=== PATIENT | male | born 1965 | race African-American/Black ===

== ENCOUNTER 2021-02-05 07:56 | Outpatient (CLI) | payer OTHER, SELFPAY ==
[2021-02-05 08:26] LABS: Alanine Aminotransferase 18 U/L (4-50); Albumin Level 4.5 g/dL (3.5-5.1); Alkaline Phosphatase 80 U/L (38-126); Anion Gap 7 mmol/L (8-16); Aspartate Amino Transferase 33 U/L (17-59); Bilirubin,Total 0.7 mg/dL (0.2-1.3); Blood Urea Nitrogen 15 mg/dL (9-20); Calcium 9.3 mg/dL (8.4-10.2); Carbon Dioxide 28 mmol/L (22-30); Chloride 102 mmol/L (98-107); Cholesterol 153 mg/dL (0-200); Estimated Glomerular Filt Rate > 60; Glucose 96 mg/dL (65-110); HDL Direct 40 mg/dL; Potassium 4.2 mmol/L (3.4-5.0); Sodium 137 mmol/L (137-145); Triglycerides 57 mg/dL (<150)
[2021-02-05 08:36] LABS: LDL Cholesterol Direct 79 mg/dL
[2021-02-05 08:55] LABS: Prostate Specific Antigen 1.3 ng/mL (< OR = 4.0)
== END 2021-02-05 07:57 | disposition home or self-care (01) ==
PROVIDERS: PCP Internal Medicine; Visit Provider Nurse Practitioner
DX: R73.03 Prediabetes (principal); I10 Essential (primary) hypertension; Z12.5 Encounter for screening for malignant neoplasm of prostate; E03.9 Hypothyroidism, unspecified; Z79.899 Other long term (current) drug therapy; E78.5 Hyperlipidemia, unspecified
CPT/HCPCS: 36415; 80053; 80061; 83036; 84153; 84443; G0103

== ENCOUNTER 2022-03-10 10:00 | Outpatient (CLI) | payer BC, SELFPAY ==
[2022-03-10 11:03] LABS: Alanine Aminotransferase 18 U/L (6-50); Albumin Level 4.2 g/dL (3.5-5.1); Alkaline Phosphatase 70 U/L (38-126); Anion Gap 7 mmol/L (8-16); Aspartate Amino Transferase 23 U/L (17-59); Bilirubin,Total 0.6 mg/dL (0.2-1.3); Blood Urea Nitrogen 15 mg/dL (9-20); Calcium 9.2 mg/dL (8.4-10.2); Carbon Dioxide 29 mmol/L (22-30); Chloride 100 mmol/L (98-107); Cholesterol 151 mg/dL (0-200); Estimated Glomerular Filt Rate > 60; Glucose 95 mg/dL (65-110); HDL Direct 49 mg/dL; Sodium 136 mmol/L (137-145); Triglycerides 47 mg/dL (<150)
[2022-03-10 11:15] LABS: LDL Cholesterol Direct 74 mg/dL
[2022-03-10 11:36] LABS: Prostate Specific Antigen 1.6 ng/mL (< OR = 4.0)
[2022-03-10 11:39] LABS: Hemoglobin A1C 5.8 % (<5.7)
== END 2022-03-10 10:01 | disposition home or self-care (01) ==
PROVIDERS: PCP Internal Medicine; Visit Provider Internal Medicine
DX: E03.9 Hypothyroidism, unspecified (principal); I10 Essential (primary) hypertension; Z79.899 Other long term (current) drug therapy; E78.5 Hyperlipidemia, unspecified; R73.03 Prediabetes; Z12.5 Encounter for screening for malignant neoplasm of prostate
CPT/HCPCS: 36415; 80053; 80061; 83036; 84153; 84443; G0103

== ENCOUNTER 2022-03-22 14:41 | Outpatient (CLI) | payer BC, SELFPAY ==
--- NOTE | ~2022-03-22 | XR_ITS ---
EXAM: XR knee LT 3V DATE: 03/22/2022 15:04 HISTORY: M25.569 - LT KNEE PAIN . COMPARISON: 09/28/2008. FINDINGS: Decreased mineralization. No acute fracture or dislocation. No lytic or blastic lesion. Mo derate medial and mild lateral joint space narrowing. Tricompartmental osteophytosis, severe tibial f emoral compartment. No erosion or periosteal change. Vascular calcification. Large volume joint fluid . IMPRESSION: Left knee osteoarthritis, severe in the patellofemoral compartment. Large left knee joint effusion. Reviewed, dictated and finalized at location [facility].
== END 2022-03-22 14:42 | disposition home or self-care (01) ==
LOC: ANHIMG 14:47
PROVIDERS: PCP Internal Medicine; Visit Provider Internal Medicine
DX: M17.12 Unilateral primary osteoarthritis, left knee (principal); M25.462 Effusion, left knee
CPT/HCPCS: 73562

== ENCOUNTER 2023-04-03 08:04 | Outpatient (CLI) | payer BC, SELFPAY ==
[2023-04-03 08:43] LABS: Alanine Aminotransferase 23 U/L (6-50); Albumin Level 4.2 g/dL (3.5-5.1); Alkaline Phosphatase 62 U/L (38-126); Anion Gap 5 mmol/L (8-16); Aspartate Amino Transferase 28 U/L (17-59); Bilirubin,Total 0.6 mg/dL (0.2-1.3); Blood Urea Nitrogen 15 mg/dL (9-20); Calcium 8.9 mg/dL (8.4-10.2); Carbon Dioxide 28 mmol/L (22-30); Chloride 105 mmol/L (98-107); Cholesterol 136 mg/dL (0-200); Estimated Glomerular Filt Rate > 60; Glucose 90 mg/dL (65-110); HDL Direct 36 mg/dL; Potassium 4.4 mmol/L (3.4-5.0); Sodium 138 mmol/L (137-145); Triglycerides 53 mg/dL (<150)
[2023-04-03 08:48] LABS: Hemoglobin A1C 5.7 % (<5.7)
[2023-04-03 08:54] LABS: LDL Cholesterol Direct 78 mg/dL
== END 2023-04-03 08:05 | disposition home or self-care (01) ==
LOC: ANHLAB 08:06
PROVIDERS: PCP Nurse Practitioner; Visit Provider Nurse Practitioner
DX: I10 Essential (primary) hypertension (principal); Z79.899 Other long term (current) drug therapy; R73.03 Prediabetes; E78.5 Hyperlipidemia, unspecified
CPT/HCPCS: 36415; 80053; 80061; 83036

== ENCOUNTER 2024-04-01 12:03 | Outpatient (CLI) | payer BC, SELFPAY ==
[2024-04-01 13:25] LABS: Alanine Aminotransferase 16 U/L (6-50); Albumin Level 4.3 g/dL (3.5-5.1); Alkaline Phosphatase 69 U/L (38-126); Anion Gap 7 mmol/L (4-12); Aspartate Amino Transferase 25 U/L (17-59); Bilirubin,Total 0.6 mg/dL (0.2-1.3); Blood Urea Nitrogen 12 mg/dL (9-20); Calcium 8.9 mg/dL (8.4-10.2); Carbon Dioxide 30 mmol/L (22-30); Chloride 99 mmol/L (98-107); Cholesterol 148 mg/dL (0-200); Estimated Glomerular Filt Rate > 60; Glucose 101 mg/dL (65-110); HDL Direct 47 mg/dL; Potassium 3.7 mmol/L (3.4-5.0); Sodium 136 mmol/L (137-145); Triglycerides 90 mg/dL (<150)
[2024-04-01 13:39] LABS: Hemoglobin A1C 6.3 % (<5.7); LDL Cholesterol Direct 79 mg/dL
[2024-04-01 13:57] LABS: Prostate Specific Antigen 3.3 ng/mL (< OR = 4.0)
== END 2024-04-01 12:04 | disposition home or self-care (01) ==
LOC: ANHLAB 12:04
PROVIDERS: PCP Nurse Practitioner; Visit Provider Nurse Practitioner
DX: E78.5 Hyperlipidemia, unspecified (principal); E03.9 Hypothyroidism, unspecified; R73.03 Prediabetes; Z12.5 Encounter for screening for malignant neoplasm of prostate
CPT/HCPCS: 36415; 80053; 80061; 83036; 84153; 84443; G0103

== ENCOUNTER 2024-05-12 03:19 | Day surgery (SDC) | payer BC, SELFPAY ==
[2024-05-02 13:48] VITALS: BMI 32.3
--- NOTE | 2024-05-11 15:01 | WPDANESEPP ---
Anes - Eval Pre Procedure Procedure: Operation Date: 05/12/24 10:30 Proposed Procedures p Colonoscopy - En Turner MD Date/Time: 05/11/24 15:01 Pre Op Diagnosis: hx of colon polyps Patient Data Age: 58 Gender: M Height: 1.8 m Weight: 105 kg Allergies Allergy/AdvReac Type Severity Reaction Status Date / Time ampicillin Allergy Mild Rash Verified 05/02/24 13:29 Home Medications Medication Instructions Recorded Confirmed Type amlodipine 5 mg tablet See Rx Instructions .Route 01/30/24 05/02/24 Rx .COMPLEX #90 tabs levothyroxine 100 mcg tablet 100 mcg PO DAILY #90 tabs 01/30/24 05/02/24 Rx lovastatin 20 mg tablet 20 mg PO DAILY #90 tabs 01/30/24 05/02/24 Rx Patient hx anesthesia problems: none Family hx anesthesia problems: none Results Review: All pre-operative results and documents have been reviewed as part of the pre-operative evaluation. [facility] Past Medical History Medical History COVID-19 Pain management Tobacco abuse Surgical History Surgical History H/O arthroscopic knee surgery Family History Family History Sibling Family history of pancreatic cancer Family history of heart disease in male family member before age 55 Father Family history of tuberculosis Mother Family history of diabetes mellitus in first degree relative Diabetes mellitus Other Thyroid disorder Social History Social History Smoking packs per day: 0.5 Smoking cigarettes per day: 10.0 Years smoked: 20 Smoking pack-years: 10.00 Smoking status: Current every day smoker Tobacco type: cigarettes Second hand tobacco smoke exposure: Yes Alcohol intake: current Drinks per week: 2 Alcohol use details: social Substance use: never Substance use type: does not use Do You Feel Safe in your Home?: Yes Lack of Transportation: No Lack of Food: Never True Current Housing: I Have Housing Concerned About Future Housing: No Difficulty Paying Gas/Electric Bills: No Difficulty Paying for Meds: No Currently Unemployed: No Education: High School Diploma/GED Difficulty w/ Childcare or Family Care: No Living arrangements: with family Additional living arrangements comments: Nathaly Occupation/Education: occupation Additional occupation/education comments: [employer] Gender identity (if verbalized by the patient): Male Spiritual care concerns: No Exam Day of Procedure 05/11/24 15:01
[2024-05-12 09:38] VITALS: BP 123/84; PULSE 86; RESP 18; TEMP 36; O2SAT 99
[2024-05-12] MEDS: LACTATED RINGERS 1,000 ML 150 ML IV CONT (09:46)
--- NOTE | 2024-05-12 10:11 | P.PNAN_ITS ---
Anes - Initial Pre Proc Eval Procedure: Operation Date: 05/12/24 10:30 Proposed Procedures p Colonoscopy - En Turner MD Date/Time: 05/12/24 10:11 Surgeon: En Turner MD Pre Op Diagnosis: hx of colon polyps Patient Data Age: 58 Gender: M Height: 1.8 m Weight: 103.1 kg Last Vital Signs Temp 36.0 C L 05/12/24 09:38 Pulse 86 05/12/24 09:38 Resp 18 05/12/24 09:38 BP 123/84 05/12/24 09:38 Pulse Ox 99 05/12/24 09:38 O2 Del Method Room Air 05/12/24 09:38 Allergies Allergy/AdvReac Type Severity Reaction Status Date / Time ampicillin Allergy Mild Rash Verified 05/12/24 09:34 Home Medications Medication Instructions Recorded Confirmed Type amlodipine 5 mg tablet See Rx Instructions .Route 01/30/24 05/12/24 Rx .COMPLEX #90 tabs levothyroxine 100 mcg tablet 100 mcg PO DAILY #90 tabs 01/30/24 05/12/24 Rx lovastatin 20 mg tablet 20 mg PO DAILY #90 tabs 01/30/24 05/12/24 Rx Patient hx anesthesia problems: none Family hx anesthesia problems: none Results Review: All pre-operative results and documents have been reviewed as part of the pre- operative evaluation. COUNTS INCLUDE 234 BEDS AT THE [facility] Past Medical History Medical History COVID-19 Pain management Tobacco abuse Surgical History Surgical History H/O arthroscopic knee surgery Family History Family History Sibling Family history of pancreatic cancer Family history of heart disease in male family member before age 55 Father Family history of tuberculosis Mother Family history of diabetes mellitus in first degree relative Diabetes mellitus Other Thyroid disorder Social History Social History Smoking packs per day: 0.5 Smoking cigarettes per day: 10.0 Years smoked: 20 Smoking pack-years: 10.00 Smoking status: Current every day smoker Tobacco type: cigarettes Second hand tobacco smoke exposure: Yes Alcohol intake: current Drinks per week: 2 Alcohol use details: social Substance use: never Substance use type: does not use Do You Feel Safe in your Home?: Yes Lack of Transportation: No Lack of Food: Never True Current Housing: I Have Housing Concerned About Future Housing: No Difficulty Paying Gas/Electric Bills: No Difficulty Paying for Meds: No Currently Unemployed: No Education: High School Diploma/GED Difficulty w/ Childcare or Family Care: No Living arrangements: with family Additional living arrangements comments: Nathaly Occupation/Education: occupation Additional occupation/education comments: [employer] Gender identity (if verbalized by the patient): Male Spiritual care concerns: No Anes - Eval Final PreProcedure Day of Procedure 05/12/24 10:11 Patient weight: obese Heart: regular rate and rhythm Lungs: decreased breath sounds Airway: Mallampati scale class II Neurological: alert and oriented Last oral intake: >/= 8 hours ASA classification: III Emergent: no Anesthetic plan: proceed Anesthesia type and monitoring: general GIVS and standard monitoring Results Review: All pre-operative results and documents have been reviewed as part of the pre- operative evaluation. Informed Consent: The patient's anesthetic plan and its attendant risks and benefits were discussed with the patient/family/POA. Questions were solicited and answers provided to the satisfaction of the patient/family/POA.
--- NOTE | 2024-05-12 10:35 | PM.IMHP ---
H&P: HPI History of Present Illness Date/Time: 05/12/24 10:35 Chief Complaint: History of colon polyps Narrative: The patient has a history of colonic polyps, the last colonoscopy was 6 years ago. Review of Systems Review of Systems: All systems reviewed & are unremarkable except as noted in HPI and below PMFSH Past Medical History Medical History COVID-19 Pain management Tobacco abuse Surgical History Surgical History H/O arthroscopic knee surgery Family History Family History Sibling Family history of pancreatic cancer Family history of heart disease in male family member before age 55 Father Family history of tuberculosis Mother Family history of diabetes mellitus in first degree relative Diabetes mellitus Other Thyroid disorder Social History Social History Smoking packs per day: 0.5 Smoking cigarettes per day: 10.0 Years smoked: 20 Smoking pack-years: 10.00 Smoking status: Current every day smoker Tobacco type: cigarettes Second hand tobacco smoke exposure: Yes Alcohol intake: current Drinks per week: 2 Alcohol use details: social Substance use: never Substance use type: does not use Do You Feel Safe in your Home?: Yes Lack of Transportation: No Lack of Food: Never True Current Housing: I Have Housing Concerned About Future Housing: No Difficulty Paying Gas/Electric Bills: No Difficulty Paying for Meds: No Currently Unemployed: No Education: High School Diploma/GED Difficulty w/ Childcare or Family Care: No Living arrangements: with family Additional living arrangements comments: Nathaly Occupation/Education: occupation Additional occupation/education comments: [employer] Gender identity (if verbalized by the patient): Male Spiritual care concerns: No Meds Home Medications and Allergies Home Medications Medication Instructions Recorded Confirmed Type amlodipine 5 mg tablet See Rx Instructions .Route 01/30/24 05/12/24 Rx .COMPLEX #90 tabs levothyroxine 100 mcg tablet 100 mcg PO DAILY #90 tabs 01/30/24 05/12/24 Rx lovastatin 20 mg tablet 20 mg PO DAILY #90 tabs 01/30/24 05/12/24 Rx Allergies Allergy/AdvReac Type Severity Reaction Status Date / Time ampicillin Allergy Mild Rash Verified 05/12/24 09:34 Vital Signs Vital Signs - 24 hr 05/12/24 09:38 Temperature 96.8 F L Pulse Rate 86 Respiratory Rate 18 Blood Pressure 123/84 Pulse Oximetry 99 Oxygen Delivery Room Air Assessment and Plan Assessment and plan (1) History of colon polyps: Code(s): Z86.010 - Personal history of colon polyps Status: Acute Assessment and Plan: The patient is deemed a good candidate for the procedure. Consent signed. Will proceed.
[2024-05-12 11:04] VITALS: BP 106/73; PULSE 85; RESP 18; O2SAT 100
[2024-05-12 11:14] VITALS: BP 112/71; PULSE 83; RESP 20; O2SAT 100
[2024-05-12 11:24] VITALS: BP 130/89; PULSE 77; RESP 20; O2SAT 100
== END 2024-05-12 11:37 | disposition home or self-care (01) ==
PROVIDERS: PCP Nurse Practitioner; Referring Provider Nurse Practitioner; Visit Provider Internal Medicine Gastroenterology
PROC: 0DJD8ZZ Inspection of Lower Intestinal Tract, Via Natural or Artificial Opening Endoscopic (ICD-10-PCS; CPT 45378; principal; 2024-05-12 10:30)
DX: Z12.11 Encounter for screening for malignant neoplasm of colon (principal); D12.2 Benign neoplasm of ascending colon; K64.8 Other hemorrhoids; F17.210 Nicotine dependence, cigarettes, uncomplicated; E66.9 Obesity, unspecified; Z68.31 Body mass index [BMI] 31.0-31.9, adult; Z98.890 Other specified postprocedural states; Z80.0 Family history of malignant neoplasm of digestive organs; Z82.49 Family history of ischemic heart disease and other diseases of the circulatory system
CPT/HCPCS: 45385; 88305; J2003; J2704; J7120